=== PATIENT | male | born 1970 | race Two or more races ===

== ENCOUNTER 2022-04-03 14:43 | Emergency (ER) | payer SELFPAY ==
[2022-04-03 14:55] VITALS: BP 121/83; PULSE 83; RESP 19; TEMP 98.1; BMI 31.3
== END 2022-04-03 16:14 | disposition home or self-care (01) ==
LOC: JERFT 14:43
DX: J06.9 Acute upper respiratory infection, unspecified (principal)
CPT/HCPCS: 0241U-QW; 82962; 99283-25